=== PATIENT | female | born 1985 | race Caucasian/White ===

== ENCOUNTER 2019-12-14 19:03 | Emergency (ER) | payer OTHER ==
[~2019-12-14] VITALS: Ht 162.6 cm; Wt 68.5 kg
[~2019-12-14 19:03] MED LIST: IBUP-974 PO
[2019-12-14 19:28] VITALS: BP 122/65
--- NOTE | 2019-12-14 19:33 | NUR ---
pt ambulated to chair D
--- NOTE | 2019-12-14 19:48 | NUR ---
PT C/O RIGHT FLANK PAIN X1 DAY. PT STATES INCREASED URINATION. PT STATES SHE HAS NEVER HAD THIS IN THE PAST. NO BURING URINATION. PT APPEARS TO BE IN NO DISTRESS. WILL CONTINUE TO MONITOR. WAITING FOR PROVIDER TO SEE PT.
[2019-12-14 21:07] VITALS: BP 122/65
--- NOTE | 2019-12-14 21:08 | NUR ---
Patient discharged with v/s stable. Written and verbal after care instructions given and explained. Patient alert, oriented and verbalized understanding of instructions. Ambulatory with steady gait. All questions addressed prior to discharge. ID band removed. Patient advised to follow up with PMD. Rx of PROMETHAZINE, IBUPROFEN AND KEFLEX given. Patient educated on indication of medication including possible reaction and side effects. Opportunity to ask questions provided and answered.
== END 2019-12-14 21:08 | disposition home or self-care (01) ==
LOC: MED 19:03
DX: J06.9 Acute upper respiratory infection, unspecified (principal); N39.0 Urinary tract infection, site not specified; Z79.899 Other long term (current) drug therapy
CPT/HCPCS: 81002; 81025; 99283